=== PATIENT | male | born 1940 | race Caucasian/White ===

== ENCOUNTER 2023-03-08 15:05 | Outpatient (RCR) | payer OTHER, SELFPAY | END 2023-03-08 23:59 | disposition home or self-care (01) | LOC: CRHB 15:05 | PROVIDERS: ATTENDING PHYSICIAN Internal Medicine Cardiovascular Disease | DX: I25.10 Atherosclerotic heart disease of native coronary artery without angina pectoris (principal); Z95.1 Presence of aortocoronary bypass graft; I42.9 Cardiomyopathy, unspecified | CPT/HCPCS: G0422; G0423 ==

== ENCOUNTER 2023-03-23 08:21 | Day surgery (SDC) | payer OTHER, SELFPAY ==
[2023-03-23] VITALS (15 sets, daily range): BP systolic 110–143; BP diastolic 59–84; BMI 26.7; BMI 25.8
[2023-03-23 08:54] LABS: Glucose - Point of Care 184 mg/dl (70-99)
[2023-03-23] MEDS: NSS 246 ML IV (08:55)
[2023-03-23 10:12] LABS: ACT-LR - POC 348 Seconds (116-155)
[2023-03-23 10:49] LABS: ACT-LR - POC 266 Seconds (116-155)
--- NOTE | 2023-03-23 11:13 | ITS.CL.CATH ---
Electrical Maintenance Worker - Catheterization
Cardiac Catheterization
Procedure Report:
CARDIAC CATHETERIZATION REPORT
Date of Procedure: 03/23/2023
Referring: Cory Doty DO
Indication: Worsening exertional shortness of breath since CABG x 1 10/2022 with stress test showing large fixed apical defect
HEMODYNAMIC DATA
AO: 131/72
LV: 131/30
LEFT VENTRICULOGRAPHY: Severe global hypokinesis with apical akinesis and visually estimated ejection fraction 20% with at least moderate mitral regurgitation
CORONARY ANGIOGRAPHY
Dominance: Right
Left Main: 30% distal stenosis
LAD: There is ostial disease which is angiographically ambiguous but has previously been shown to be flow-limiting by FloWire assessment prior to CABG in August 2022. There is 40% mid LAD stenosis and 50% distal LAD stenosis proximal to the BLANCA graft
touchdown site. The distal LAD fills mostly via the BLANCA graft and there is no significant LAD disease distal to the BLANCA graft touchdown site.
Circumflex: There may be ostial circumflex disease which angiographically appears to be 40-50%. There is 20% mid circumflex stenosis. There is a small ramus intermedius branch, a twig like OM1, and a large OM 2 which has diffuse moderate disease
in the smaller daughter branch after a distal bifurcation. The circumflex terminates distal to a huge OM 3 which is free of disease.
RCA: 20% proximal stenosis with otherwise mild luminal irregularities
Bypass grafts: The patient underwent single-vessel robotic MIDCAB surgery in October 2022. EF at that time was 30% by echo. Selective angiography of the left internal mammary artery demonstrates 80% stenosis at and just proximal to the touchdown
site in the BLANCA graft. There is RAJANI-3 flow distal to the graft into the apical LAD and retrograde flow in the LAD to supply a moderate-sized diagonal branch.
FloWire assessment: We opted to do FloWire assessment of the left main, LAD, and left circumflex. Heparin is used for anticoagulation. An 6 Indonesian JL 4 guide catheter was used. A [employer] flow wire was advanced into the aorta through the guide
catheter which was positioned outside of the left coronary artery. Normalization was performed. The wire was directed into the circumflex and then into the LAD. Results include the following:
Left circumflex: IFR 0.93, 0.93, 0.93. These measurements prove that there is no flow-limiting disease in the left main or proximal LAD.
LAD: With the wire in the proximal to mid LAD, IFR 0.67, 0.67, 0.68. These are consistent with highly flow-limiting disease.
We then decided to perform FloWire assessment of the distal BLANCA graft stenosis. Using a 6 Indonesian BLANCA guide, the Loyal flow wire was advanced into the distal LAD. iFR measurements were 0.48, 0.47, and 0.45. This strongly suggest significant
flow-limiting disease at the graft touchdown site. A decision was then made to perform PCI of this BLANCA graft stenosis.
Angioplasty: Heparin was used for anticoagulation. Angioplasty of the BLANCA graft lesion was accomplished with a 2.25 x 8 trek to maximum 9 muna. Moving the balloon through the BRISENO graft was met with some resistance prompting the use of
intra-arterial nitroglycerin. Additionally, I decided to place a BMW wire and remove the Loyal flow wire before placing a stent. A 2.5 x 12 Xience ROSI was deployed to cover the distal BLANCA graft lesion with the distal edge of the stent being
about 5 mm into the LAD. Stent deployment was accomplished at 11 muna and this was followed by postdilatation with a 2.5 NC trek to 14 muna. The final angiographic result was outstanding.
Closure Device: 6 Indonesian Angio-Seal RFA
Radiation (mGy): 472
DAP (cm2.Gy): 34.7
Fluoroscopy time: 13.8 minutes
CONCLUSIONS
1: Markedly elevated LVEDP
2: Apical akinesis with otherwise severe global hypokinesis with EF 20%
3. At least moderate mitral regurgitation
4. Severe [place] CAD as described with patent BRISENO-LAD graft with 80% touchdown stenosis involving the graft only
5. FloWire assessment as above reconfirming flow-limiting ostial LAD stenosis, flow-limiting BLANCA graft touchdown stenosis, and nonflow limiting disease in the left main/ostial circumflex
6. Successful stenting of BLANCA graft touchdown stenosis into LAD using 2.5 x 12 Xience ROSI
7. Continue dual antiplatelet therapy for 6-12 months
8. Will treat with CHF regimen. By report, the patient did not tolerate Entresto due to hypotension. We will use lisinopril 5 mg daily which should be titrated in the outpatient setting as tolerated while monitoring renal function. Additionally,
he will need furosemide probably daily given his left ventricular dysfunction. With prior EF 30% in October 2022 and now with EF 20%, he would be an appropriate candidate for ICD-with biventricular pacing as his ECG shows sinus rhythm with left
bundle branch block with QRS duration 144 ms
Copy to: Cory Doty DO, Jose Street MD
Marc Pelayo MD, [facility], [facility]
[2023-03-23] MEDS: NSS 1000 IV ×2 (11:21→14:29)
[2023-03-23 12:29] LABS: ACT-LR - POC > 397 Seconds (116-155)
[2023-03-23 14:43] LABS: Glucose - Point of Care 187 mg/dl (70-99)
[2023-03-23] MEDS: NOVOLOG vial 1 UNITS SC (14:45)
[2023-03-23] MEDS: LASIX 20 MG IV (15:38)
[2023-03-23 17:43] LABS: Glucose - Point of Care 323 mg/dl (70-99)
--- NOTE | 2023-03-23 17:50 | SUR.OPER ---
Rec'd pt from cardiac cath AAOx3 w/no c/o CP or SOB at rest. Pt very SOB on exertion. RA SpO2 sats of 92% on RA. Pt's R groin access site w/dressing C/D/I. Pedal pulses weak but palpable. Vs Stable. Pt oriented to rm & admission assessment
completed. Call allen within reach & no addtl needs at this time.
[2023-03-23] MEDS: NOVOLOG FLEXPEN-MODERATE RESISTANCE SC (18:04)
[2023-03-23] MEDS: PRAVACHOL 20 MG PO (18:34)
[2023-03-23] MEDS: ZESTRIL 5 MG PO (18:34)
[2023-03-23] MEDS: GLUCOTROL 10 MG PO (18:34)
[2023-03-23] MEDS: NOVOLOG FLEXPEN-MODERATE RESISTANCE 7 UNITS SC (19:02)
[2023-03-23] MEDS: IMDUR (EXTENDED RELEASE) 30 MG PO (19:41)
[2023-03-23] MEDS: COREG 6.25 MG PO (19:41)
[2023-03-23] MEDS: COMBIGAN EYE DROPS 1 DROP LEFT EYE (19:42)
[2023-03-23] MEDS: SENOKOT-S PO (19:42)
[2023-03-23 21:38] LABS: Glucose - Point of Care 245 mg/dl (70-99)
[2023-03-23] MEDS: LUMIGAN 0.01% 1 DROP BOTH EYES (22:09)
--- NOTE | 2023-03-24 00:56 | PTCARENOTE ---
Pt. has no complaints CP/discomfort so far this shift, VSS, NSR on the monitor. Right groin cath site dressing CDI, no S&S hematoma, pedal pulse palpable. Pt. sleeping.
[2023-03-24 03:42] VITALS: BP 104/63
[2023-03-24 04:08] VITALS: BMI 25.8
[2023-03-24 04:15] LABS: Hematocrit 42.7 % (39.0-52.0); Hemoglobin 14.2 g/dL (13.0-18.0); Mean Corp Hgb Conc. 33.3 g/dL (33.0-37.0); Mean Corpuscular Hgb 25.8 pg (27.0-31.0); Mean Corpuscular Volume 77.6 fL (80.0-94.0); Mean Platelet Volume 11.3 fL (7.4-10.4); Platelet Count 173 10^3/uL (130-400); Red Cell Dist. Width 15.9 % (11.5-14.5); White Blood Cell Count 26.9 10^3/uL (4.8-10.8)
[2023-03-24 05:00] LABS: Blood Urea Nitrogen 40 mg/dl (9-20); Carbon Dioxide 25 mmol/L (22-30); Chloride 105 mmol/L (98-107); Estimated Creatinine Clearance 30 ml/min; Glucose 114 mg/dl (70-99); HDL Cholesterol 31 mg/dl; LDL Cholesterol, Calculated 76 mg/dl; Potassium 4.1 mmol/L (3.5-5.1); Sodium 139 mmol/L (135-145); Total Cholesterol 133 mg/dl (50-199); Triglyceride 133 mg/dl (10-149); Very Low Density Lipoprotein 26 mg/dl (0-30); eGFR 34.79
[2023-03-24 07:38] VITALS: BP 115/79
[2023-03-24 07:41] LABS: Glucose - Point of Care 135 mg/dl (70-99)
[2023-03-24] MEDS: IMDUR (EXTENDED RELEASE) 30 MG PO (08:44)
[2023-03-24] MEDS: GLUCOTROL 5 MG PO (08:44)
[2023-03-24] MEDS: LASIX 20 MG IV (08:44)
[2023-03-24] MEDS: PLAVIX 75 MG PO (08:44)
[2023-03-24] MEDS: ASPIR LOW (ENTERIC COATED) 81 MG PO (08:44)
[2023-03-24] MEDS: SENOKOT-S 1 TABLET PO (08:44)
[2023-03-24] MEDS: NOVOLOG FLEXPEN-MODERATE RESISTANCE SC (08:44)
[2023-03-24] MEDS: COREG 6.25 MG PO (08:44)
[2023-03-24] MEDS: COMBIGAN EYE DROPS 1 DROP LEFT EYE (08:50)
[2023-03-24 08:54] LABS: Glycohemoglobin (HgbA1c) 7.9 % (4.0-5.6)
--- NOTE | 2023-03-24 09:09 | W.PN.CARDCBS ---
Addendum entered and electronically signed by Kobi Jackson MD 03/24/23 09:57:
I saw and examined the patient.
The AIR BRAKES INSPECTOR or PA's note was reviewed and I agree with the note.
Comment: 82M with worsening ICM despite recent CABG. Now s/p PCI to BLANCA touchdown site
- DAPT/statin
- Interventional added ACEi and diuretic. We will check BMP in one week given CKD
- femoral site looks fine
Original Note:
Today's Communication / Plan
-
Transition to po lasix
cardiac rehab
labs in 1 week
followup w/Dr. Doty as scheduled
home today
Impression / Plan
-
PCP: Jose Street MD
CDY: Cory Doty MD
82 y/o, PMH sig for CAD w/single vessel robotic MIDCAB BRISENO-LAD (11/06/22), ischemic cardiomyopathy, chronic systolic HFrEF 30-35%, LBBB, CKD3b, HTN, HLD, DM, CLL, TIA.
Started with SOB/KIM that was progressive with fatigue. Stress test with anterior ischemia and EF with drop to 10-15%.
LHC with new 80% stenosis at/prox to touchdown site in BLANCA graft, s/p angioplasty and ROSI.
LVEDP markedly elevated at 30, LVG with apical AK, severe global HK with EF 20%.
IMPRESSION/PLAN:
CAD/Prior SV MIDCAB BRISENO-LAD (10/2022)
ICM, HFrEF w/new EF drop to 10-15%/LBBB
s/p BRISENO touchdown angioplasty/ROSI
continue DAPT w/asa, plavix as before
tele NSR w/PAC, no vt/arrhythmia
intolerant of entresto d/t hypotension
start low dose lisinopril 5mg/daily, continue carvedilol, isosorbide
should be on max ambrocio GDMT- consider farxiga 10/daily, spironolactone 12.5/d
LVEDP 30- lasix 20 IV last genevieve/today- will go home on 40mg/daily
BMP in 1 week with med changes
Will need echo in 6-8 weeks- if EF remains low would meet criteria for Bi-V ICD
followup with Dr. Doty as scheduled
anticipate home today
CKD3b- will monitor with addition of mayra, furosemide
creat 1.9 today- at baseline
will repeat BMP in 1 week
HTN- stable on current meds
HLD- lipid profile noted, continue pravastatin as before
CLL- chronic leukocytosis, stable WBC 26 today
DM- HgbA1c 7.9%- continue glipizide
followup w/PCP for med adjustment/management
Progress Note - Budget Coordinator
Subjective
Date of Service: March 24, 2023
Dyspnea at rest, with minimal exertion sitting up in bed- he states this is his baseline and normal for him
no cp/palps
cath with without pain
Objective
Labs:
03/24/23 03:53
03/24/23 03:53
Labs
Hgb 14.2 g/dL (13.0-18.0) 03/24/23 03:53
Hct 42.7 % (39.0-52.0) 03/24/23 03:53
Plt Count 173 10^3/uL (130-400) 03/24/23 03:53
Sodium 139 mmol/L (135-145) 03/24/23 03:53
Potassium 4.1 mmol/L (3.5-5.1) 03/24/23 03:53
BUN 40 mg/dl (9-20) H 03/24/23 03:53
Creatinine 1.9 mg/dL (0.7-1.3) H 03/24/23 03:53
Glucose 114 mg/dl (70-99) H 03/24/23 03:53
Vital Signs and I&O:
Vital Signs
Temp Pulse Resp BP Pulse Ox
97.6 F 87 24 115/79 94
03/24/23 07:35 03/24/23 08:00 03/24/23 07:35 03/24/23 07:38 03/24/23 08:54
Vital Signs
Temp Pulse Resp BP Pulse Ox
97.6 F 87 24 11579 94
03/24/23 07:35 03/24/23 08:00 03/24/23 07:35 03/24/23 07:38 03/24/23 08:54
Intake & Output
03/22/23 03/23/23 03/24/23 03/25/23
06:59 06:59 06:59 06:59
Intake Total 1965 180 / 180
Balance 1965 180 / 180
Physical Exam
Physical Exam
AAOx3, MAEE 5/5
RRR S1 S1 no murmurs
CTA bilat, non labored
soft abd, + bs
right femoral cath site without ht/bleeding, non tender, mild bruising noted
bilat extremities w/palpable distal pulses, no edema
[2023-03-24 11:11] VITALS: BP 94/54
--- NOTE | 2023-03-24 11:33 | CM ---
Chart reviewed. Patient is independent of ADLS, lives alone in a split level home, 5-6 ROB, 0 DME. Patient currently with no discharge needs. Plan is for the patient to return home.
--- NOTE | 2023-03-24 11:56 | W.DS.TRANS ---
DC Summary - Chief Nursing Officer
-
Discharge Instructions:
Sleep Apnea Risk Intermediate
Discharge Diagnosis/Procedures Angioplasty and stent to BRISENO-Left Anterior
Descending artery
Diet Low Cholesterol,Diabetic, Carb Controlled,
Restrict fluids to 48 oz
Driving Restrictions No driving for 24 hours
Blood Work BMP in 1 week- results to Dr. Doty
Other Services Cardiac Rehab
Instructions: *PCP/Other Medical Cost Consultant Heart Failure Instructions
Stand-Alone Forms: DC Instructions- Cath/EP Lab
Changes to Home Medications: Yes
Discharge Medications:
DC Medications w/original date entered in [employer]
aspirin 81 mg tablet,delayed release 81 mg PO DAILY ##30 05/25/15
clopidogrel 75 mg tablet 75 mg PO DAILY ##30 05/25/15
bimatoprost 0.01 % eye drops (Lumigan) 1 drp BOTH EYES HS 01/31/18
pravastatin 20 mg tablet 20 mg PO QPM 01/31/18
brimonidine 0.2 %-timolol 0.5 % eye drops (Combigan) 1 drp LEFT EYE BID 10/15/22
dulaglutide 1.5 mg/0.5 mL subcutaneous pen injector (Trulicity) 1.5 mg SC PRUITT 10/15/22
glipizide 5 mg tablet 5 mg PO DAILY 10/15/22
glipizide 5 mg tablet 10 mg PO QPM 10/15/22
acetaminophen 325 mg tablet 650 mg PO Q4HPRN PRN mild pain,headache,temp >101F #0 tabs 11/10/22
carvedilol 12.5 mg tablet (Coreg) 6.25 mg PO BID #30 tabs 11/10/22
isosorbide mononitrate 30 mg tablet,extended release 24 hr 30 mg PO BID 03/23/23
sennosides 8.6 mg-docusate sodium 50 mg tablet (Senna Plus) 1 tab PO BID 03/23/23
furosemide 40 mg tablet 40 mg PO DAILY #90 tabs 03/24/23
lisinopril 5 mg tablet 5 mg PO QPM #90 tabs 03/24/23
nitroglycerin 0.4 mg sublingual tablet 0.4 mg sublingual [id number] PRN chest pain #25 tabs 03/24/23
Home Medication Changes
NEW: furosemide, lisinopril, nitrostat
Pending Results: No
--- NOTE | 2023-03-24 12:53 | PTCARENOTE ---
Pt seen by and Verónica Boucher NP. Pt denies any discomfort. 8 beat run NSVT noted on trelemetry, Verónica Boucher NP aware, pt asymptomatic. Telemetry and IV device removed. Discharge instructions reviewed with pt regarding CHF guidelines,
activity and driving restrictions, medications and their actions and possible side effects, wound care, reporting cares and concerns and follow up appt's. Very good understanding. Pt escorted out via wheelchair and discharged to home.
== END 2023-03-24 12:25 | disposition home or self-care (01) ==
LOC: CATH 08:21
PROVIDERS: Nurse Practitioner Adult Health; ATTENDING PHYSICIAN Internal Medicine Cardiovascular Disease; FAMILY PHYSICIAN Family Medicine; OTHER PHYSICIAN Internal Medicine Cardiovascular Disease
DX: I25.110 Atherosclerotic heart disease of native coronary artery with unstable angina pectoris (principal); Z95.5 Presence of coronary angioplasty implant and graft; I34.0 Nonrheumatic mitral (valve) insufficiency; I13.0 Hypertensive heart and chronic kidney disease with heart failure and stage 1 through stage 4 chronic kidney disease, or unspecified chronic kidney disease; I50.22 Chronic systolic (congestive) heart failure; N18.32 Chronic kidney disease, stage 3b; I44.7 Left bundle-branch block, unspecified; E11.22 Type 2 diabetes mellitus with diabetic chronic kidney disease; C91.10 Chronic lymphocytic leukemia of B-cell type not having achieved remission; E78.5 Hyperlipidemia, unspecified; Z79.82 Long term (current) use of aspirin; Z79.02 Long term (current) use of antithrombotics/antiplatelets; Z79.85 Long-term (current) use of injectable non-insulin antidiabetic drugs; Z79.84 Long term (current) use of oral hypoglycemic drugs
CPT/HCPCS: C1769; C1725; C1887; 80048; 80061; 82962; 83036; 85027; 85347; 93005; 93459; 93571; 93572; C1760; C1874; C1894; C9604; Q9967

== ENCOUNTER → 2023-03-31 10:00 | Outpatient (REF) | payer OTHER, SELFPAY ==
[2023-03-31 11:26] LABS: Blood Urea Nitrogen 55 mg/dl (9-20); Calcium 10.2 mg/dl (8.4-10.2); Carbon Dioxide 28 mmol/L (22-30); Chloride 100 mmol/L (98-107); Glucose 213 mg/dl (70-99); Potassium 4.7 mmol/L (3.5-5.1); Sodium 141 mmol/L (135-145); eGFR 29.17
== END ==
LOC: REG 10:00
PROVIDERS: ATTENDING PHYSICIAN Internal Medicine Cardiovascular Disease; FAMILY PHYSICIAN Family Medicine; REFERRING PHYSICIAN Internal Medicine Cardiovascular Disease
DX: N18.32 Chronic kidney disease, stage 3b (principal)
CPT/HCPCS: 36415; 80048

== ENCOUNTER 2023-08-12 09:13 | Day surgery (SDC) | payer OTHER, SELFPAY ==
[2023-08-12] VITALS (13 sets, daily range): BP systolic 99–129; BP diastolic 56–75; BMI 27.5
[2023-08-12 09:44] LABS: Hematocrit 46.2 % (39.0-52.0); Hemoglobin 15.8 g/dL (13.0-18.0); Mean Corp Hgb Conc. 34.2 g/dL (33.0-37.0); Mean Corpuscular Hgb 27.8 pg (27.0-31.0); Mean Corpuscular Volume 81.3 fL (80.0-94.0); Mean Platelet Volume 10.2 fL (7.4-10.4); Platelet Count 183 10^3/uL (130-400); Red Blood Cell Count 5.68 10^6/uL (4.70-6.10); Red Cell Dist. Width 13.6 % (11.5-14.5); White Blood Cell Count 38.2 10^3/uL (4.8-10.8)
[2023-08-12 09:59] LABS: ALT (SGPT) 24 U/L (0-50); AST (SGOT) 34 U/L (17-59); Alkaline Phosphatase 63 U/L (38-126); Blood Urea Nitrogen 56 mg/dl (9-20); Calcium 10.2 mg/dl (8.4-10.2); Carbon Dioxide 22 mmol/L (22-30); Chloride 103 mmol/L (98-107); Estimated Creatinine Clearance 20 ml/min; Glucose 184 mg/dl (70-99); Potassium 5.6 mmol/L (3.5-5.1); Sodium 137 mmol/L (135-145); Total Bilirubin 1.1 mg/dl (0.2-1.3); Total Protein 8.2 g/dl (6.3-8.2); eGFR 23.73
--- NOTE | 2023-08-12 13:33 | ITS.CL.ICD ---
Projection Welding Machine Operator - ICD
Implantable Cardioverter Defibrillator
Procedure Report:
Date of Procedure: August 12, 2023.
Procedures: Bi-Ventricular ICD implant: Left Ventricular Lead placement, ICD implantation.
Indication: Class III CHF, LVEF 14%, Left Bundle Branch Block, QRS 148 s; the patient's life expectancy exceeds one year, heart failure duration more than 3 months despite maximally tolerated guideline directed medical therapy..
Performing physician: Garrett Martinez MD, [facility].
Implants:
Pulse Generator: Medtronic; Model# [id number]; Serial# [id number].
Atrial Lead: Medtronic: Model# [id number]; Serial# [id number].
Right Ventricular Lead: Medtronic; Model# [id number]; Serial# [id number].
Left Ventricular Lead: Medtronic; Model# 4298-88cm; Serial# [id number].
Technique: A time out was performed. The procedure site was identified. The patient was anesthetized by the anesthesia service. Preoperative cefazolin was administered. The patient was prepped and draped in the usual fashion. Local anesthetic was
applied to the left prepectoral subcutaneous tissue. A 3 inch incision was made along the left deltopectoral groove. Dissection was carried to the fascia. The left cephalic vein was not found in the left deltopectoral fat pad. The left axillary vein
was accessed with three separate percutaneous micro- punctures without difficulty. The leads were introduced with hemostatic peel away introducer sheaths. The ventricular lead was placed at the right ventricular mid septum. The ventricular lead was
secured to the pectoralis muscle and fascia with two 0-silk sutures. The atrial lead was then placed in the right atrial appendage. The atrial lead was secured to the pectoralis muscle and fascia with two 0-silk sutures. The coronary sinus was
accessed with the aid of the ITN Sure Valve [id number] system with a MP sheath. Coronary sinus venography was not performed. Using a 130 degree inner canula and the LV lead with a BMW wire the posterolateral vein was cannulated and the lead
placed distally into that vein. The LV lead was secured to the pectoralis muscle and fascia. 8 volt pacing did not capture the diaphragm from any lead. A subcutaneous pocket was created with Bovie cautery. Hemostasis was excellent.The leads were
appropriately attached to the device. The pocket was irrigated with antibiotic solution. The device and leads were placed in the pocket. The generator was secured with 0-silk suture to prevent migration of the device. The incision was closed in
three layers with absorbable suture. Steri-strips and an silver impregnated dressing were placed. Estimated blood loss was 1 ml. There were no complications. Fluoroscopy: time 9.9 minutes and DAP 4.42 GyCM2. The device was then interrogated after
skin closure. No IV contrast was administered during the procedure.
System Analysis:
RA lead: P: 1.8 mV; Threshold: 1.5 V @ 0.4 ms; Impedance: 665 ohms.
RV lead: R: 18.3mV; Threshold: 0.5 V @ 0.4 ms; Impedance: 609 ohms. HVB 65 ohms
LV lead (LV3=>LV4): Threshold: 0.75 V @ 0.4 ms; Impedance: 798 ohms. Electrical separation 148 ms. Ther e are multiple good LV vectors to chose from.
Final Programming: Tachy: VT/VF:188 bpm; Naveen: DDDR 60-120 bpm.
Conclusion: Uncomplicated Biventricular ICD implant. The BiV ICD system is MRI safe/conditional. No IV contrast was used.
Recommendation: Routine post BiV ICD care.
cc: Cory Doty DO and Jose Street MD.
[2023-08-12 13:40] LABS: Glucose - Point of Care 171 mg/dl (70-99)
--- NOTE | 2023-08-12 14:48 | W.ICD.CONTRA ---
Post ICD/DEVULCANIZER LOADER-D
-
History of AL?: Yes
LV Function
Left ventricular function study result?: Ejection Fraction </= 35%
ACEI/ARB/ARNI
Patient already on ACEI/ARB/ARNI: Yes
Beta-Neva
Patient already on Beta Neva: Yes
--- NOTE | 2023-08-12 16:33 | CM ---
CM following for DC planing needs.
Pt. resides in a private, split level home alone. He is functionally indep. at baseline w/ ADls, mobility without the use of any assisted device.
Anticipated DC plan is for home, no needs.
CM to follow.
[2023-08-12] MEDS: LASIX 20 MG PO (17:04)
[2023-08-12 17:25] LABS: Glucose - Point of Care 217 mg/dl (70-99)
[2023-08-12] MEDS: PRAVACHOL 20 MG PO (18:08)
[2023-08-12] MEDS: GLUCOTROL 10 MG PO (18:08)
[2023-08-12] MEDS: ANCEF 5 IV (18:08)
--- NOTE | 2023-08-12 18:24 | PTCARENOTE ---
Pt received post BIVICD placement in left anterior chest, dressing dry and intact, no sign of bleeding or hematoma. Pt denies any discomfort, up OOB independently. Activity restrictions demonstrated to pt who states understanding. Pt voiding without
difficulty. Telemetry shows ventricular paced rhythm with frequent PVC's and occasional NSVT up to 8 beats.
[2023-08-12] MEDS: COREG 6.25 MG PO (20:37)
[2023-08-12] MEDS: XALATAN OPHTHALMIC SOLUTION 1 DROP BOTH EYES (20:37)
[2023-08-12] MEDS: COMBIGAN EYE DROPS 1 DROP LEFT EYE (20:37)
[2023-08-12] MEDS: IMDUR (EXTENDED RELEASE) 30 MG PO (20:37)
[2023-08-12 22:04] LABS: Glucose - Point of Care 219 mg/dl (70-99)
--- NOTE | 2023-08-12 23:53 | PTCARENOTE ---
Patient in the chair earlier, now in bed. Left arm immobilizer intact. Left chest wall CDI with pressure dressing bruising under left arm. Denies pain. REGIONAL FACILITIES SPECIALIST on telemetry. Call allen in reach
[2023-08-13 02:52] VITALS: BP 110/72
[2023-08-13] MEDS: ANCEF 5 IV (03:06)
[2023-08-13] MEDS: TYLENOL 650 MG PO (03:07)
[2023-08-13 03:26] LABS: Hematocrit 43.1 % (39.0-52.0); Mean Corp Hgb Conc. 32.5 g/dL (33.0-37.0); Mean Corpuscular Hgb 27.3 pg (27.0-31.0); Mean Platelet Volume 10.5 fL (7.4-10.4); Platelet Count 153 10^3/uL (130-400); Red Blood Cell Count 5.13 10^6/uL (4.70-6.10)
[2023-08-13 03:33] LABS: White Blood Cell Count 40.2 10^3/uL (4.8-10.8)
[2023-08-13 03:53] LABS: Blood Urea Nitrogen 54 mg/dl (9-20); Calcium 9.3 mg/dl (8.4-10.2); Carbon Dioxide 21 mmol/L (22-30); Chloride 106 mmol/L (98-107); Estimated Creatinine Clearance 22 ml/min; Glucose 167 mg/dl (70-99); Magnesium 2.2 mg/dl (1.6-2.3); Potassium 4.9 mmol/L (3.5-5.1); Sodium 136 mmol/L (135-145); eGFR 26.12
--- NOTE | 2023-08-13 04:04 | PTCARENOTE ---
Tylenol given for left ear pain, warm compress applied. EKG completed, labs collected, VSS, call allen in reach
[2023-08-13 07:15] VITALS: BP 114/99
[2023-08-13 07:17] VITALS: BP 125/73
[2023-08-13 07:25] VITALS: BMI 27.2
[2023-08-13 07:45] LABS: Glucose - Point of Care 141 mg/dl (70-99)
[2023-08-13] MEDS: COMBIGAN EYE DROPS 1 DROP LEFT EYE (08:43)
[2023-08-13] MEDS: PLAVIX 75 MG PO (08:46)
[2023-08-13] MEDS: COREG 6.25 MG PO (08:47)
[2023-08-13] MEDS: IMDUR (EXTENDED RELEASE) 30 MG PO (08:47)
[2023-08-13] MEDS: ASPIR LOW (ENTERIC COATED) 81 MG PO (08:47)
[2023-08-13] MEDS: LASIX 20 MG PO (08:47)
[2023-08-13] MEDS: GLUCOTROL 5 MG PO (08:52)
--- NOTE | 2023-08-13 08:53 | W.PN.CARDCBS ---
Today's Communication / Plan
-
post BiV ICD
continue GDMT, assess cost of SGLT2i
home today
Impression / Plan
-
PCP: Jose Street MD
CDY: Cory Doty MD
82 y/o, PMH sig for CAD w/single vessel robotic MIDCAB BRISENO-LAD (11/06/22), ischemic cardiomyopathy, chronic systolic HFrEF 10-15%, LBBB, CKD3b, HTN, HLD, DM, CLL, TIA. Recent PCI BRISENO-LAD 03/23/23, despite revascularization/GDMT EF remains low and
presented for BiVICD implant.
IMPRESSION/PLAN:
ICM, HFrEF 10-15%, LBBB - s/p BiV ICD 08/12/23
site with ecchymosis no HT, tele AsVpaced with NSVT
CXR no PTX, leads in good position
HF continue lisinopril, carvedilol, isosorbide, intolerant of Entresto, spironolactone d/t hypotension
Will have CM check cost SGLT2i and initiate if able
Activity restrictions reviewed
inc check 1 week at [facility] then continue cardiac care with Dr. Doty
CAD/Prior SV MIDCAB BRISENO-LAD (10/2022) s/p BRISENO touchdown angioplasty/ROSI 03/23/23
continue DAPT w/asa, plavix, statin
CKD3b- Cr stable 2.4, baseline 2-2.5
HTN- stable on current meds
HLD- lipid profile noted, continue pravastatin as before
CLL- chronic leukocytosis
DM- HgbA1c 7.9%- continue glipizide
Progress Note - Patch Press Operator
Subjective
Date of Service: August 13, 2023
no cp, sob, mild inc pain
Objective
Labs:
08/13/23 03:01
08/13/23 03:01
Labs
Hgb 14.0 g/dL (13.0-18.0) 08/13/23 03:01
Hct 43.1 % (39.0-52.0) 08/13/23 03:01
Plt Count 153 10^3/uL (130-400) 08/13/23 03:01
Sodium 136 mmol/L (135-145) 08/13/23 03:01
Potassium 4.9 mmol/L (3.5-5.1) 08/13/23 03:01
BUN 54 mg/dl (9-20) H 08/13/23 03:01
Creatinine 2.4 mg/dL (0.7-1.3) H 08/13/23 03:01
Glucose 167 mg/dl (70-99) H 08/13/23 03:01
Vital Signs and I&O:
Vital Signs
Temp Pulse Resp BP Pulse Ox
97.4 F 77 20 125/73 100
08/13/23 07:16 08/13/23 08:47 08/13/23 07:16 08/13/23 08:47 08/13/23 07:16
Vital Signs
Temp Pulse Resp BP Pulse Ox
97.4 F 77 20 125/73 100
08/13/23 07:16 08/13/23 08:47 08/13/23 07:16 08/13/23 08:47 08/13/23 07:16
Intake & Output
08/11/23 08/12/23 08/13/23 08/14/23
06:59 06:59 06:59 06:59
Intake Total 480 / 480
Balance 480 / 480
Physical Exam
Physical Exam
NAD, AOx3
S1, s2, RRR
CTAB, non labored
SNTND bsx4
L CW Aquacel dressing small old blood on dressing, moderate ecchymosis axilla down left arm and medial to site, no HT
--- NOTE | 2023-08-13 10:14 | CM ---
Priced Jardiance and Farxiga thru patient's insurance.
Received estimated co pay information for both of $30/30 d supply.
[2023-08-13] MEDS: FARXIGA 10 MG PO (11:06)
[2023-08-13] MEDS: PREVNAR 20 0.5 ML IM (11:06)
[2023-08-13 11:19] VITALS: BP 101/66
--- NOTE | 2023-08-13 11:28 | W.DS.TRANS ---
DC Summary - Director Of Outpatient Services
-
Discharge Instructions:
Sleep Apnea Risk Intermediate
Discharge Diagnosis/Procedures BiV ICD implant
Diet Low Cholesterol,2 Gram Sodium,Restrict fluids to
64 oz
Driving Restrictions No driving for 1 week
Bathing Restrictions OK to Shower
Specialty Instructions Weigh Daily
Instructions: Dapagliflozin
*PCP/Other System Analyst Heart Failure Instructions
Stand-Alone Forms: DC Inst - Implanted Device
Changes to Home Medications: Yes
Discharge Medications:
DC Medications w/original date entered in [employer]
aspirin 81 mg tablet,delayed release 81 mg PO DAILY ##30 05/25/15
clopidogrel 75 mg tablet 75 mg PO DAILY ##30 05/25/15
bimatoprost 0.01 % eye drops (Lumigan) 1 drp BOTH EYES HS Eye Condition 01/31/18
pravastatin 20 mg tablet 20 mg PO QPM High Cholesterol 01/31/18
brimonidine 0.2 %-timolol 0.5 % eye drops (Combigan) 1 drp LEFT EYE BID Eye Condition 10/15/22
glipizide 5 mg tablet 5 mg PO DAILY Diabetes 10/15/22
glipizide 5 mg tablet 10 mg PO QPM Diabetes 10/15/22
carvedilol 12.5 mg tablet (Coreg) 6.25 mg (1/2 x 12.5 mg) PO BID #30 tabs 11/10/22
isosorbide mononitrate 30 mg tablet,extended release 24 hr 30 mg PO BID Heart Disease/Condition 03/23/23
Glucosamine 1 tab PO DAILY Supplement 08/12/23
coenzyme Q10 200 mg capsule (Co Q-10) 200 mg PO DAILY Supplement 08/12/23
furosemide 40 mg tablet 20 mg PO BID Fluid Retention/Swelling 08/12/23
pyridoxine (vitamin B6) 100 mg tablet (Vitamin B-6) 100 mg PO DAILY Supplement 08/12/23
semaglutide 0.25 mg or 0.5 mg (2 mg/1.5 mL) subcutaneous pen injector (Ozempic) 0.5 mg SC QWEEK 08/12/23
dapagliflozin propanediol 10 mg tablet (Farxiga) 10 mg PO DAILY #30 tabs 08/13/23
lisinopril 5 mg tablet 5 mg PO QPM Blood Pressure 08/13/23
Home Medication Changes
new to dapagliflozin
Pending Results: No
--- NOTE | 2023-08-13 12:03 | CM ---
CM following for DC planning needs.
Met w/ patient at bedside.
Pt. feels prepared for DC and offers no concern or needs.
Reviewed estimated cost of Farxiga/Riteshdikelli and pt. is agreeable to cost.
Plan is home, no needs.
CM to remain available for any needs that may arise.
== END 2023-08-13 12:11 | disposition home or self-care (01) ==
LOC: CATH 09:13
PROVIDERS: Nurse Practitioner Adult Health; ATTENDING PHYSICIAN Internal Medicine Cardiovascular Disease; FAMILY PHYSICIAN Family Medicine; OTHER PHYSICIAN Internal Medicine Cardiovascular Disease
DX: I50.22 Chronic systolic (congestive) heart failure (principal); I44.7 Left bundle-branch block, unspecified; I13.0 Hypertensive heart and chronic kidney disease with heart failure and stage 1 through stage 4 chronic kidney disease, or unspecified chronic kidney disease; N18.32 Chronic kidney disease, stage 3b; E11.22 Type 2 diabetes mellitus with diabetic chronic kidney disease; C91.10 Chronic lymphocytic leukemia of B-cell type not having achieved remission; I25.5 Ischemic cardiomyopathy; Z95.5 Presence of coronary angioplasty implant and graft; Z86.73 Personal history of transient ischemic attack (TIA), and cerebral infarction without residual deficits; I25.10 Atherosclerotic heart disease of native coronary artery without angina pectoris; E78.5 Hyperlipidemia, unspecified
CPT/HCPCS: 33249; 33225; 71045; 80048; 80053; 82962; 83735; 85027; 90677; 93005; C1769; C1777; C1882; C1887; C1892; C1898; C1900; G0009